=== PATIENT | male | born 1980 | race Caucasian/White ===

== ENCOUNTER 2021-02-19 09:24 | Emergency (ER) | payer MEDICAID, OTHER ==
[~2021-02-19] VITALS: Ht 180.3 cm; Wt 78.0 kg
--- NOTE | 2021-02-19 09:41 | NUR ---
PT. ARRIVES BY [facility] WITH C/O ASCITES ABDOMEN AND NEEDING A PARACENTESIS. PT. REPORTS HIS LAST TAP BEING X 2 WEEKS AGO AT [facility]. PT. IS A & O X 4 WITH A GCS OF 15. PUPILS ARE PERRLA. NECK IS MIDLINE WITHOUT JVD NOTED. CHEST RISE AND FALL IS SYMMETRICAL WITH LUNGS CTA THROUGHOUT. S1 S2 NOTED WITHOUT MURMURS, RUBS OR GALLOPS. PT.'S ABD. IS ROUND AND DISTENDED AND FIRM. BS + X 4 QUADS. PT.'S LOWER EXTREMITIES HAVE +2 PITTING EDEMA PRESENT. PT. HAS A WOUND TO HIS RIGHT LOWER LEG WHICH IS COVERED WITH A BANDAIDE. PT. WAS PLACED ON THE CP MONITOR. HOB IS ELEVATED GREATER THAN 30 DEGREES. HE VOIDED 200CC DARK, YELLOW URINE. SIDERAILS REMAIN UP X 2 WITH THE CALL LIGHT IN PLACE.
--- NOTE | 2021-02-19 11:09 | NUR ---
PT. WAS TAKEN TO RADIOLOGY FOR HIS PROCEDURE.
[2021-02-19 11:21] LABS: BASOPHILS % (AUTO) 1 % (0-1); EOSINOPHILS % (AUTO) 1 % (1-7); LYMPHOCYTES % (AUTO) 16 % (22-44); MEAN CORPUSCULAR HEMOGLOBIN 36.4 pg (27.5-34.5); MEAN CORPUSCULAR HGB CONC 33.7 g/dL (33.2-36.2); MEAN PLATELET VOLUME 7.4 fL (7.4-10.4); MONOCYTES % (AUTO) 10 % (2-9); NEUTROPHILS % (AUTO) 71 % (42-75); PLATELET COUNT 281 x10^3/uL (130-400); RED BLOOD COUNT 3.16 x10^6/uL (4.38-5.82); RED CELL DISTRIBUTION WIDTH 13.3 % (9.4-14.8)
[2021-02-19] MEDS ORDERED: LIDOCAINE 1%, 10ML ONE (11:27)
[2021-02-19 11:32] LABS: ALANINE AMINOTRANSFERASE 30 U/L (12-78); ANION GAP 9 mmol/L (5-15); CALCIUM 8.3 mg/dL (8.5-10.1); CHLORIDE 99 mmol/L (98-107); CREATININE 0.53 mg/dL (0.7-1.3)
[2021-02-19 11:33] LABS: ALKALINE PHOSPHATASE 152 U/L (45-117); BILIRUBIN,TOTAL 0.8 mg/dL (0.2-1.0); TOTAL PROTEIN 6.7 g/dL (6.4-8.2)
--- NOTE | 2021-02-19 12:10 | NUR ---
PT. REMAINS IN RADIOLOGY.
--- NOTE | 2021-02-19 12:37 | NUR ---
PT. RETURNS TO THE ED. REPORTS FEELING BETTER. PT. STATES THEY REMOVED 5 LITERS OF FLUIDS FROM HIS ABDOMEN.
--- NOTE | 2021-02-19 13:35 | NUR ---
REPORT CALLED TO [facility] THE FACILITY THAT SENT THE PT. TO THE ED.
--- NOTE | 2021-02-19 14:32 | NUR ---
Patient/Caregiver given discharge instructions and they have confirmed that they understand the instructions. Patient ambulatory with steady gait. NAD, all questions answered appropriately, denies additional needs at this time. No personal belongings left in room after discharge. Pt. was transported to sending facility by [email or web address].
[2021-02-19 14:33] VITALS: BP 113/68
== END 2021-02-19 14:33 | disposition home or self-care (01) ==
LOC: ED 09:34
DX: K70.11 Alcoholic hepatitis with ascites (principal)
CPT/HCPCS: 36415; 49083; 80053; 85025; 99285; J3490